=== PATIENT | male | born 1980 ===

== ENCOUNTER 2024-03-24 05:18 | Day surgery (SDC) | payer OTHER ==
[2024-03-24] MEDS ORDERED: CEFAZOLIN SODIUM 1,000 MG VIAL IV ONE (09:15)
[2024-03-24] MEDS ORDERED: BUPIVACAINE HCL 30 ML VIAL IV ONE (09:15)
[2024-03-24] MEDS ORDERED: LIDOCAINE HCL 1%/EPINEPHRINE 20ML VIAL IJ ONE (09:15)
[2024-03-24] MEDS ORDERED: MORPHINE SULFATE 4 MG/ML VIAL IV ONE ×2 (11:15→11:45)
== END 2024-03-24 13:30 | disposition home or self-care (01) ==
LOC: CIR.AMB 05:18
PROVIDERS: ATTEND Surgery
DX: K80.20 Calculus of gallbladder without cholecystitis without obstruction (principal)